=== PATIENT | male | born 1960 | race Caucasian/White ===

== ENCOUNTER 2022-04-30 09:30 | Outpatient (CLI) | payer BC, SELFPAY ==
--- NOTE | 2022-04-30 10:45 | NEURO_ITS ---
Impression: # History of bilateral hand numbness. # Evidence of mild bilateral Carpal Tunnel Syndrome (right worse than left). # Normal needle/EMG exam. # Clinical correlation recommended. Motor Nerve Conduction Upper Extremities Median Nerve Conduction Velocity (m/sec) Terminal Latency (msec) Response Voltage(mV) Elbow-Wrist Wrist Elbow Wrist Right 52 4.5 4 4 Left 53 3.9 6 6 Ulnar Nerve Conduction Velocity (m/sec) Terminal Latency (msec) Response Voltage(mV) Above Elbow Below Elbow Wrist Above Elbow Below Elbow Wrist Right 56 55 2.4 5 5 6 Left 55 54 2.2 5 6 7 F-Wave Latency Median (ms) Ulnar (ms) Right 32.8 31.3 Left 32.3 31.5 Sensory Nerve Conduction Upper Extremities Median Nerve Stimulation Terminal Latency (msec) Wrist/Digit Response Voltage (uV) Wrist Right 4.7/5.3 6/5 Left 4.6/4.7 17/9 Ulnar Nerve Stimulation Terminal Latency (msec) Wrist/Digit Response Voltage (uV) Wrist Right 2.6 11 Left 2.7 18 Radial Nerve Terminal Latency (msec) Response Voltage(mV) Right 2.0 27 Left 2.1 15 Left Right Muscles Examined Fibrillation Fasciculation Scarcity Voltage Duration Left Right Left Right Left Right Left Right Left Right Deltoid Biceps X X Brachioradialis Triceps X X Pronator Teres X X Ext Indicis X X Ext Digitorum X X Abd Poll Brev X X 1st Dorsal Interosseus Paraspinals MTDD
== END 2022-04-30 09:31 | disposition home or self-care (01) ==
LOC: ANHNEURO 09:32
PROVIDERS: PCP Family Medicine; Visit Provider Physician Assistant
DX: G56.03 Carpal tunnel syndrome, bilateral upper limbs (principal)
CPT/HCPCS: 95886; 95911

== ENCOUNTER 2022-05-12 08:14 | Outpatient (CLI) | payer BC, SELFPAY ==
--- NOTE | ~2022-05-12 | XR_ITS ---
EXAMINATION: HAND-MIRELA ARTHRITIS 3+VIEWS DATE: 05/12/2022 08:34 INDICATION: Bilateral hand pain, stiffness and numbness TECHNIQUE: Posteroanterior, lateral, and oblique views of the left and of the right hands as well as a ballcatchers view of both hands were obtained. COMPARISON: None. FINDINGS: Alignment is normal at both hands. No fractures. Relatively symmetric pattern of polyarticular osteoa rthritis with mild nonuniform joint space narrowing and tiny 2 moderate-sized marginal osteophytes in volving the bilateral first carpometacarpal, first-third metacarpophalangeal and multiple interphalan geal joints with distal predominance. No erosions to suggest inflammatory arthritis. Soft tissues are unremarkable. IMPRESSION: 1. Typical and relatively symmetric distribution of mild polyarticular osteoarthritis at the bilatera l hands. Reviewed, dictated and finalized at location D. ECTION PRINTER IMPRESSION: 1. Typical and relatively symmetric distribution of mild polyarticular osteoart hritis at the bilateral hands.
== END 2022-05-12 08:15 | disposition home or self-care (01) ==
PROVIDERS: PCP Family Medicine; Visit Provider Physician Assistant
DX: G56.00 Carpal tunnel syndrome, unspecified upper limb (principal); M19.042 Primary osteoarthritis, left hand; M19.041 Primary osteoarthritis, right hand
CPT/HCPCS: 73130

== ENCOUNTER 2022-05-13 00:41 | Day surgery (SDC) | payer BC, SELFPAY ==
[2022-04-27 13:53] VITALS: BMI 33.2
--- NOTE | 2022-05-12 13:35 | PM.HPGS ---
History of Present Illness History of Present Illness Consent: Risks, benefits, and alternatives have been discussed and questions answered. Patient agrees to proceed with procedure. Chief complaint: neoplasm screening Narrative: Nader Ndiaye is a 61 year old male referred for colon cancer screening. Review of Systems Review of Systems: All systems reviewed & are unremarkable except as noted in HPI and below PMFSH Past Medical History Medical History Blood glucose elevated Obesity Family History Family History Mother Diabetes mellitus Social History Social History Smoking packs per day: 0.5 Smoking cigarettes per day: 10.0 Years smoked: 20 Smoking pack-years: 10.00 Smoking status: Never smoker Tobacco type: cigarettes Second hand tobacco smoke exposure: No Smoking end date: 04/12/81 Alcohol intake: current Drinks per week: 0 Alcohol use details: rarely Substance use: never Substance use type: does not use Living arrangements: with family Occupation/Education: occupation Gender identity (if verbalized by the patient): Male Sexual Orientation (if Verbalized by the Patient): Straight or Heterosexual Spiritual care concerns: No Meds Home Medications and Allergies Home Medications Medication Instructions Recorded Confirmed Type atorvastatin 10 mg tablet 10 mg PO DAILY #90 tabs 12/16/21 04/24/22 Rx amlodipine 10 mg tablet 10 mg PO DAILY #90 tabs 04/24/22 04/24/22 Rx Allergies Allergy/AdvReac Type Severity Reaction Status Date / Time No Known Allergies Allergy Verified 04/24/22 08:44 Exam Const: General: alert Orientation/consciousness: patient oriented x3 Resp: Auscultation: clear to auscultation bilaterally Cardio: Rhythm: regular rhythm GI: GI Palp: Yes Soft to palpation and No Tenderness to palpation present (GI) Neuro: General: patient oriented x3 Assessment and Plan Assessment and plan (1) Colon cancer screening: Code(s): Z12.11 - Encounter for screening for malignant neoplasm of colon Status: Acute Assessment and Plan: Colonoscopy with possible biopsy or polypectomy or cautery or injection of substances.
[2022-05-13 06:15] VITALS: BP 126/78; PULSE 65; RESP 18; TEMP 36.4; O2SAT 100; BMI 33.7
[2022-05-13] MEDS: LACTATED RINGERS 1,000 ML 150 ML IV CONT (06:36)
--- NOTE | 2022-05-13 07:17 | P.PNAN_ITS ---
Anes - Initial Pre Proc Eval Procedure: Operation Date: 05/13/22 07:30 Proposed Procedures p Screening Colonoscopy - Tonny Shannon MD Date/Time: 05/13/22 07:17 Surgeon: Tonny Shannon MD Pre Op Diagnosis: neoplasm screening Patient Data Age: 61 Gender: M Height: 1.8 m Weight: 109.9 kg Last Vital Signs Temp 97.5 F L 05/13/22 06:15 Pulse 65 05/13/22 06:15 Resp 18 05/13/22 06:15 BP 126/78 05/13/22 06:15 Pulse Ox 100 05/13/22 06:15 O2 Del Method Room Air 05/13/22 06:15 Allergies Allergy/AdvReac Type Severity Reaction Status Date / Time No Known Allergies Allergy Verified 04/24/22 08:44 Home Medications Medication Instructions Recorded Confirmed Type atorvastatin 10 mg tablet 10 mg PO DAILY #90 tabs 12/16/21 04/24/22 Rx amlodipine 10 mg tablet 10 mg PO DAILY #90 tabs 04/24/22 04/24/22 Rx Patient hx anesthesia problems: none Family hx anesthesia problems: none Results Review: All pre-operative results and documents have been reviewed as part of the pre- operative evaluation. [facility] Past Medical History Medical History Blood glucose elevated Obesity Family History Family History Mother Diabetes mellitus Social History Social History Smoking packs per day: 0.5 Smoking cigarettes per day: 10.0 Years smoked: 20 Smoking pack-years: 10.00 Smoking status: Never smoker Tobacco type: cigarettes Second hand tobacco smoke exposure: No Smoking end date: 04/12/81 Alcohol intake: current Drinks per week: 0 Alcohol use details: rarely Substance use: never Substance use type: does not use Living arrangements: with family Occupation/Education: occupation Gender identity (if verbalized by the patient): Male Sexual Orientation (if Verbalized by the Patient): Straight or Heterosexual Spiritual care concerns: No Anes - Eval Final PreProcedure Day of Procedure 05/13/22 07:17 Patient weight: obese Heart: regular rate and rhythm Lungs: clear to auscultation Airway: Mallampati scale class II Neurological: alert and oriented Last oral intake: >/= 8 hours ASA classification: II Emergent: no Anesthetic plan: proceed Anesthesia type and monitoring: general GIVS and standard monitoring Results Review: All pre-operative results and documents have been reviewed as part of the pre- operative evaluation. Informed Consent: The patient's anesthetic plan and its attendant risks and benefits were discussed with the patient/family/POA. Questions were solicited and answers provided to the satisfaction of the patient/family/POA.
[2022-05-13 07:45] VITALS: BP 112/60; PULSE 60; RESP 18; O2SAT 96
[2022-05-13 07:55] VITALS: BP 113/60; PULSE 53; RESP 17; O2SAT 98
[2022-05-13 08:05] VITALS: BP 107/72; PULSE 56; RESP 17; O2SAT 98
== END 2022-05-13 08:14 | disposition home or self-care (01) ==
PROVIDERS: PCP Family Medicine; Visit Provider Internal Medicine Gastroenterology
PROC: 0DJD8ZZ Inspection of Lower Intestinal Tract, Via Natural or Artificial Opening Endoscopic (ICD-10-PCS; CPT 45378; principal; 2022-05-13 07:30)
DX: Z12.11 Encounter for screening for malignant neoplasm of colon (principal); K57.30 Diverticulosis of large intestine without perforation or abscess without bleeding; D12.4 Benign neoplasm of descending colon; K62.1 Rectal polyp; Z87.891 Personal history of nicotine dependence; E66.9 Obesity, unspecified; Z68.33 Body mass index [BMI] 33.0-33.9, adult
CPT/HCPCS: 45385; 88305; J2704; J7120

== ENCOUNTER 2024-02-28 13:45 | Outpatient (CLI) | payer BC, SELFPAY ==
--- NOTE | ~2024-02-28 | XR_ITS ---
EXAMINATION: XR_CERV2-3V_CR DATE: 02/28/2024 14:05 INDICATION: Paresthesia of skin. Tingling in the hands. TECHNIQUE: 4 views of cervical spine were obtained. COMPARISON: None. FINDINGS: Alignment is normal. Vertebral body heights are normal. There is mildly decreased disc heig ht at C5-C6 and moderately decreased disc height at C6-C7. There is multilevel mild facet joint osteo arthritis. No central canal stenosis or prevertebral soft tissue swelling. IMPRESSION: 1. Moderate cervical spondylosis. Reviewed, dictated and finalized at location A. ATOR OPERATOR
== END 2024-02-28 13:46 | disposition home or self-care (01) ==
PROVIDERS: PCP Family Medicine; Visit Provider Physician Assistant Medical
DX: R20.2 Paresthesia of skin (principal); M47.892 Other spondylosis, cervical region
CPT/HCPCS: 72040

== ENCOUNTER 2024-05-05 15:30 | Outpatient (RCR) | payer BC, SELFPAY ==
--- NOTE | 2024-04-04 09:59 | OPREHPOC ---
Outpatient Therapy Plan of Care This is a Multidisciplinary Plan of Care that may contain components documented by all disciplines (PT, OT, and ST.) PT Problem 1 PT Problem #1 Knowledge Deficit PT Goal 1 Goal / Goal Update *indep with HEP Target Visit 8 PT Problem 2 PT Problem #2 Pain PT Goal 1 Goal / Goal Update * pain rating at worst of 3/10 Target Visit 8 PT Goal 2 Goal / Goal Update * pt report with sleeping, awaken 3x/night due to pain Target Visit 8 PT Problem 3 PT Problem #3 Impaired Strength PT Goal 1 Goal / Goal Update *improve thoracic-scapular strength to improve position/posture pt perform prone scapular strengthening exercises with 3# hand weight x 15 reps Target Visit 8
--- NOTE | 2024-04-04 10:00 | PTOPEVAL1 ---
Assessment and note entered by Zaira Zepeda, PT Evaluation Information Assessment Status Evaluation ICD-10 Condition Codes (PT) Cervicalgia M54.2 Onset about 1 year Subjective Information chronic issues with tingling and numbness in arms- - never really addressed it, but now want to see about it and try to get it better; no recent injury or trauma to neck or arms; R hand dominant; x ray: per pt- degenerative discs in neck activity: work at [employer]- heavy and physical work; am able to do all of his work and home tasks with numbness and tingling in both arms; Reported Pain Level Pain Score Self Report Additional Pain Score Comments pain range in the past week: 0-6/10; intermittent radicular pain/numbness- tingling into both arms, L 3,4,5 fingers > R 3,4,5 fingers increase pain: hold one position too long; sitting driving decrease pain: reposition arm; hot shower is not taking any meds- tried aleve 2x/day for one week and it did not help with sleeping awaken from pain 8x/night and have to change positions also have tightness in fingers and feel swollen-- cleared and no carpal tunnel or arthritis Assessment PT Clinical Summary Nader has the diagnosis of cervical radiculopathy. He reports chronic issues with neck pain and numbness/tingling into arms, to fingers. Reduction of this with change of position. Neck Disability Index rating 18% limitation in activity level. He is able to perform all of his work and home tasks, sleeping is disrupted due to pain. With the evaluation: he does not have pain with active cervical motions or UE movements; tightness of muscles over R and L cervical, upper traps and pec. Skilled PT services are indicated for modalities to decrease pain and muscle tightness, therapeutic exercises to stretch cervical-thoracic area, to improve posture and position with education for HEP and posture. Plan of Care Interventions Electrical Stimulation,Hot Pack/Cold Pack,Manual Therapy,Mechanical Traction,Neuro Re-education, Patient/Caregiver Education,Therapeutic Activities ,Therapeutic Exercise,Ultrasound,Other Other Interventions taping PT Services Indicated Yes Treatment Frequency and 1-2x/wk for 8 visits Duration These treatments will address the objective and functional deficits as defined above. The patient will be advanced safely and appropriately in order for the patient to progress towards his/her prior level of function. Additional exercises will be introduced and as well as a comprehensive home exercise program upon discharge, if needed, ?to ensure carryover of functional gains achieved in the clinic. This treatment plan has been reviewed and agreement upon by the patient.
--- NOTE | 2024-05-05 16:17 | PTOPDC ---
Assessment and note entered by Zaira Zepeda, PT Assessment Status Discharge ICD-10 Condition Codes (PT) Cervicalgia M54.2 Onset about 1 year Subjective Information saw dr earlier this week and going to have MRI and have a new anti inflammatory med; MRI has not yet been scheduled; only taken the med 2 days and it seems to help the tingling and it does not start up until end of the morning; exercises help some for few minutes, but still hurt and tingle; agree to discharge from PT treatment. Reported Pain Level Pain Score Self Report Additional Pain Score Comments pain range in the past week: 0-5/10; L arm tingle into 3,4,5 fingers; frequency is less of the tingling, about 1x/hour, lasting varies from 2 minutes to 2 hours; no radicular into R UE; increase pain; posture and position of arm decrease pain: move arm, lie down, hot shower with sleeping, awaken 2x/night due to arm s/s; Assessment PT Clinical Summary Nader has received a total of 8 PT sessions. Compared to the initial evaluation: pain from 0-8 /10 to 0-5/10; continues to have radicular numbness and tingling into L UE to 3,4, 5 fingers, but reports it is less, with duration vary from 2 minutes to 2 hours; reports with sleeping awaken due to tingle from 8 to 2x/night; tingling is decreased with positional change; increase in strength over scapular-thoracic musculature; increased posture awareness; education completed for HEP, posture, pain control. The goals were partially met. Discharge PT. He is to continue with his HEP. Plan of Care PT Services Indicated No
== END 2024-05-08 10:36 | disposition home or self-care (01) ==
LOC: ANHPT 15:30
PROVIDERS: PCP Family Medicine; Visit Provider Physician Assistant Medical
DX: M47.812 Spondylosis without myelopathy or radiculopathy, cervical region (principal); R20.0 Anesthesia of skin
CPT/HCPCS: 97012; 97110; 97140; 97161; 97530

== ENCOUNTER 2024-05-27 12:16 | Outpatient (CLI) | payer BC, SELFPAY ==
--- NOTE | ~2024-05-27 | MR_ITS ---
EXAMINATION: MR cervical spine wo con DATE: 05/27/2024 13:14 INDICATION: Cervical radiculopathy TECHNIQUE: Magnetic resonance imaging (MRI) of the cervical spine was performed without intravenous c ontrast. Sequences included sagittal T2-weighted FSE, sagittal T2-weighted FS FSE, sagittal T1-weight ed FSE, axial MERGE and axial T2-weighted FSE. COMPARISON: Neck CT dated 08/15 cervical spine radiographs dated 02/28/2024 FINDINGS: Bone alignment is normal. Vertebral body heights are normal. Bone marrow signal intensity is normal . Moderate disc height loss at C6-C7 and mild disc height loss at all remaining cervical levels as we ll as at C7-T1. Cord signal intensity is normal. Visualized soft tissues are unremarkable. The follow ing disc levels are specifically discussed: C2-C3: The disc does not extend beyond the endplate margin. There is no uncovertebral joint osteoarth ritis. There is moderate right and mild left facet joint osteoarthritis. There is mild right neural f oraminal stenosis. There is no central canal stenosis. C3-C4: Disc is bulging with superimposed annular fissure and small central to left paracentral disc e xtrusion which extends up to 4 mm cephalad to the level of the inferior endplate of C3. This mildly i ndents the left ventral surface of the cord. There is mild right and moderate left uncovertebral join t osteoarthritis. There is mild right and moderate left facet joint osteoarthritis. There is moderate bilateral, left greater than, neural foraminal stenosis. There is mild central canal stenosis. C4-C5: Annular fissure with small central to right paracentral disc protrusion which mildly indents t he ventral surface of the cord. There is moderate bilateral uncovertebral joint osteoarthritis. There is mild right and moderate left facet joint osteoarthritis. There is mild right and moderate left ne ural foraminal stenosis. There is mild central canal stenosis. C5-C6: Annular fissure and moderate sized right paracentral disc protrusion which indents the right v entral surface of the cord. There is mild left and moderate right uncovertebral joint osteoarthritis. There is mild bilateral facet joint osteoarthritis. There is mild left and moderate right neural for aminal stenosis. There is mild central canal stenosis. C6-C7: Disc is bulging, eccentric to the left with flattening of the ventral surface of the cord Ther e is moderate bilateral uncovertebral joint osteoarthritis. There is moderate bilateral facet joint o steoarthritis. There is mild neural foraminal stenosis. There is mild central canal stenosis. C7-T1: The disc does not extend beyond the endplate margin. There is mild left and moderate right unc overtebral joint osteoarthritis. There is mild left and moderate right facet joint osteoarthritis. Th ere is mild left and moderate right neural foraminal stenosis. There is no central canal stenosis. IMPRESSION: 1. Moderate cervical spondylosis. Reviewed, dictated and finalized at location A. ATTENDANT
--- OUTSIDE RECORDS SUMMARY | 2024-05-27 12:21 | XMS_ITS | Clinical Summary ---
Author Organization [facility] Address [address] [place] [address] Care Team Providers Care Psychiatric Social Worker Name Role Phone Unavailable Primary Care Provider Unavailabl e Immunizations Immunization Administration Dates Next Due Covid-19, Mrna, Lnp-s, PF, 5 0 mcg/0.25 mL dose (Moderna) 02/28/2021 Social History Tobacco Use Types Packs/Day Years Used Date Smoking Tobacco: Never Assessed Sex and Gender Information Value Date Recorded Sex Assigned at Not on file Legal Sex Male 11:57 PM CDT Gender Identity Not on file Sexual Orientation Not on file Plan of Treatment Health Maintenance Due Date Last Done Comments Hepatitis C Virus (HCV) Screening 1960 TdaP Immunization 1960 Colonoscopy 2006 Colorectal Cancer Screening 2006 Cologuard 11/09/2011 Immunochemical Fecal Occult Blood 11/09/2011 Pneumococcal Immunization (5 0+ years) (1 of 1 - PCV) 11/09/2011 Zoster Immunization (1 of 2) 11/09/2011 PSA Discussion 2016 Influenza Immunization (#1) 2023 SARS-COV-2 Immunization ( season) 2023 02/28/2021, 06/15/2020, 05/18/2020 Respiratory Syncytial Virus (RSV) Immunization (Adult) (1 - 1-dose 75+ series) 2036 Hepatitis B Immunization Aged Out No longer eligible based on patient's age to complete this topic Meningococcal Immunization (ACWY) Aged Out No longer eligible b ased on patient's age to complete this topic Pneumococcal Immunization Combined Aged Out No longer eligible b ased on patient's age to complete this topic Rotavirus Immunization Aged Out No lo nger eligible based on patient's age to complete this topic
--- OUTSIDE RECORDS SUMMARY | 2024-05-27 12:21 | XMS_ITS | Data Portability ---
Author [facility] Address [address] [place] [address] Assessment No assessment recorded. Plan of Treatment Reminders Order Date Submit Date Provider Last Modified By Organization Details Last Modified Time Details Appointments None recorded. Lab None recorded. Referral finish mixer referral - Please call patient to schedule and send consult note. 2016 017 MICHAEL Not available 7 14:49:04 sleep study referral - Please call patient to schedule 2016 [facility], [address] [place] [address], [address], 7 15:06:11 general surgeon referral 2016 017 [email or web address] Not available 7 07:58:58 general surgeon referral 2016 017 [email or web address] Not available 7 07:58:08 Procedures None recorded. Surgeries None recorded. Imaging None recorded. Medication Orders amlodipine 5 mg tablet 2016 017 INTERFACE [facility] [place], [address], 7 12:06:24 Patient TargetsNo targets recorded. Patient InstructionsNo instructions recorded. Reason for Referral General Surgeon Referral for Skin tag Referring Physician: Aracely Tobin, Internal Medicine, Encounter Date: 04/15/2016 Loading Rack Supervisor Referral for Dyst rophia unguium Dystrophic nail Please call patient to schedule and send consult note. Referring Physician: Aracely Tobin, Internal Medicine, Encounter Date: 04/15/2016 General Surgeon Referral for Skin tag Referring Physician: Aracely Tobin, Internal Medicine, Encounter Date: 04/15/2016 Please call patient to ciaran reed Referring Physician: Aracely Tobin, Internal Medicine, Encounter Date: 04/15/2016 Problems Name Problem SNOMED Code Status Onset Date Resolution Date Notes Provider Name and Address Organization Details Recorded Time Sleep disorder 12385409 Active 2016 Aracely Tobin MD Attn: Bertha birmingham,[address] [place], [address], [facility] 7 16:02:48 Skin tag 076775358 Active 2016 Aracely Tobin MD Attn: Bertha birmingham,[address] [place], [address], 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 Procedures Surgical History Date Name Laterality Status Provider Name and Address Organization Details Recorded Time Hernia Repair completed Zeinab Pugh MA [facility] 04/15/2016 15:09:02 Vasectomy completed Zeinab Pugh MA [facility] 04/15/2016 15:09:07 Imaging Results None recorded. Procedure Notes None recorded. Medical Equipment None Reported. Allergies No known drug allergies Medications Name Sig Start Date Stop Date Status Note LastModified by Organization Details LastModified Time amlodipine 5 mg tablet Take 1 tablet every day by oral route. 017 active Not Available Not Available Not Avai lable Vitals Date Recorded Body height Body weight Body mass index (BMI) Body temperature Heart rate Oxygen saturation Oxygen saturation in Arterial blood by Pulse oximetry Systolic blood pressure Diastolic blood pressure Provider Name and Address Organization Details Last Updated DateTime 180.34 cm 452566. 54 g 34 kg/m2 97.9 [degF] 87 /min 95 % 95 % 134 mm[Hg] 100 mm[Hg] Zeinab Pugh MA [facility] 7 15:11:15 Date Recorded Systolic blood pressure Diastolic blood pressure Provider Name and Address Organization Details Last Updated DateTime 04/15/2016 140 mm[Hg] 100 mm[Hg] Aracely Tobin MD Attn: Accounting,[address] [place], [address], [facility] 04/15/2016 15:52:51 Date Recorded Body height Body weight Body mass index (BMI) Heart rate Oxygen saturation Oxygen saturation in Arterial blood by Pulse oximetry Respiratory rate Systolic blood pressure Diastolic blood pressure Provider Name and Address Organization Details Last Updated DateTime 7 180.34 cm 334966. 42 g 33.2 kg/m2 72 /min 96 % 96 % 20 /min 138 mm[Hg] 82 mm[Hg] Rodger Beltrán [facility] 11:20:51 Social History None recorded. Functional Status None recorded. Mental Status None recorded. Family History Relationship Description Onset Age of this Age Resolved Age Notes LastModified by Organization Details LastModified Time Mother Diabetes mellitus [email or web address] Not available 2016 15:08:43 Medical History Condition Response High Cholesterol Y Past Encounters Encounter ID Performer Location Encounter Start Date Encounter Closed Date Diagnosis/Indication Diagnosis SNOMED-CT Code Diagnosis ICD10 Code Diagnosis Note [id number] MD Martha Carter (Adult Med) [address] [place] [address] 04/15/2016 14:36:18 04/15/2016 16:28:20 Pigmented skin lesion 592046511 L81.9 Observe at present Skin tag 568488449 L91.8 Elevated blood-pressure reading without diagnosis of hypertension 343977764 R03.0 Dystrophia unguium 35183 009 L60.3 Referral Sleep disorder 05547364 G47.9 [id number] MD Martha Carter (Adult Med) [address] [place] [address] 07/07/2016 10:36:19 07/07/2016 12:08:41 Essential hypertension 18149226 I10 Labs on return in 10/2016 Health Concerns Section Related Observation LastModified by Organization Detai ls LastModified Time None Recorded Concern Status LastModified by Organization Details LastModified Time None Recorded Advance Directives Directive None Recorded Payers Encounter Date Sequence Insurance Name Policy Number Policy Bar Covered Member ID Bar Member ID Guarantor Name 04/15/2016 [facility]MED[facility]ID H[facility]) Nader Ndiaye [id number] Nader Ndiaye 07/07/2016 [facility]MEDICAID HMO) Nader Ndiaye [id number] Nader Ndiaye Notes Date Note Type Note Provider Name and Address Organization Details Recorded Time 04/15/2016 text/html Has been told that he stops breathing while asleep. Has a skin tag on his right thigh. He is also concerned about a fungal infection on the left great toe. Aracely Tobin MD Attn: Accounting,[address] [facility], [place], [address], [facility] 04/15/2016 16:30:15 07/07/2016 text/html No new complaints. Aracely Tobin MD Attn: Accounting,[address] [facility], [place], [address], [facility] 07/07/2016 12:07:24
== END 2024-05-27 12:17 | disposition home or self-care (01) ==
PROVIDERS: PCP Family Medicine; Visit Provider Family Medicine
DX: M47.22 Other spondylosis with radiculopathy, cervical region (principal)
CPT/HCPCS: 72141

== ENCOUNTER 2024-08-02 07:54 | Outpatient (CLI) | payer BC, SELFPAY ==
--- NOTE | ~2024-08-02 | XR_ITS ---
XR chest 2V Ordering provider: Mariza Barlow PA-C History: 63 years Male with . J98.11 - Atelectasis . Comparison: August 13, 2005 FINDINGS: MEDIASTINUM: The cardiac silhouette is slightly enlarged. LUNGS: No effusions or pneumothorax. Atelectatic changes in the left lung base. OTHER: No free air under the diaphragm. Degenerative changes of the spine. IMPRESSION: Minimal left basal atelectatic changes. Follow-up advised Reviewed, dictated and finalized at location A.
== END 2024-08-02 07:55 | disposition home or self-care (01) ==
PROVIDERS: PCP Family Medicine; Visit Provider Physician Assistant
DX: J98.11 Atelectasis (principal); J90 Pleural effusion, not elsewhere classified
CPT/HCPCS: 71046

== ENCOUNTER 2025-01-11 11:06 | Outpatient (CLI) | payer BC, SELFPAY ==
--- NOTE | 2025-01-11 11:18 | ECG_ITS ---
Test Date: 2025-01-11 11:22:14 Measurements Intervals [place] Rate: 92 P: 59 MN: 148 QRS: 10 QRSD: 94 T: 10 QT: 327 QTc: 405 Interpretive Statements SINUS RHYTHM LOW QRS VOLTAGE IN PRECORDIAL LEADS NONSPECIFIC T-WAVE ABNORMALITY- INFERIOR LEADS BASELINE WANDER- V2-V4 BORDERLINE ECG No previous ECG available for comparison Electronically Signed On 01-11-2025 11:44:53 CDT by Jorge Alberto Miller D.O.
--- OUTSIDE RECORDS SUMMARY | 2025-01-11 11:40 | XMS_ITS | Clinical Summary ---
Author Organization [facility] Address [address] [place] [address] Care Team Providers Care Research Assistant Name Role Phone Unavailable Primary Care Provider [...] Virus (HCV) Screening 1961 TdaP Immunization 1961 Cologuard 2006 Colonoscopy 2006 Colorectal Cancer Screening 2006 Immunochemical Fecal Occult Blood 2006 Pneumococcal Immunization (5 0+ years) (1 of 1 - PCV) 11/09/2011 Zoster Immunization (1 of 2) 11/09/2011 Influenza Immunization (#1) 2024 SARS-COV-2 Immunization ( season) 2024 02/28/2021, 06/15/2020, 05/18/2020 Respiratory Syncytial Virus (RSV) Immunization (Adult) (1 - 1-dose 75+ series) 2036 Hepatitis B Immunization Aged Out No longer eligible based on patient's age to complete this topic Human Papillomavirus (HPV) Immunization Aged Out No longer eligible b ased on patient's age to complete this topic Meningococcal Immunization (ACWY) Aged Out No longer eligible b ased on patient's age to complete this topic Rotavirus Immunization Aged Out No lo nger eligible based on patient's age to complete this topic
== END 2025-01-11 11:07 | disposition home or self-care (01) ==
LOC: ANHSURGERY 11:13
PROVIDERS: PCP Family Medicine; Visit Provider Plastic Surgery
DX: R94.31 Abnormal electrocardiogram [ECG] [EKG] (principal); I10 Essential (primary) hypertension
CPT/HCPCS: 93005

== ENCOUNTER 2025-01-17 02:47 | Day surgery (SDC) | payer BC, SELFPAY ==
--- NOTE | 2025-01-10 15:18 | PC.NURSE ---
Addendum entered by Landen Lilly RN 01/10/25 15:41: PT TO STOP ALL VITAMINS AND SUPPLEMENTS 3 DAYS PRIOR TO PROCEDURE. LAST DOSE ON 01/13/25 Original Note: [facility] has started construction of its new state of the art ER which will open Spring 2026. With this, we anticipate parking may be a challenge for some our surgical patients and families. Parking spaces are limited but are available for all Surgical, obstetrics, and ER patients sharing this lot. If you arrive and find you are having a hard time finding a parking space, please note that we understand the challenges, please drive around the hospital and park near Hospital Entrance 1. When you enter this entrance, you can ask a volunteer to direct or take you back to the surgical waiting area to check in. We appreciate everyone?s understanding of these expected challenges while we build for your future. Report to the Outpatient Waiting Room, entrance under the green pavilion located off [facility], at time 1145 on date 01/17/25. Planned Procedure Time: 1345.? Time changes happen often and if your time is changed the preop area will call you the afternoon before. - You and your visitor will be asked to self-screen and do not enter if you have any COVID symptoms. Please call surgeon if you need to reschedule. - A mask is optional within the hospital at this time. Patients may have clear liquids (water, carbonated beverages, clear teas, apple juice) until 3 hours prior to surgery with a maximum of 20 ounces. - No food from midnight until time of surgery and no smoking, or chewing tobacco (or any form of nicotine). No chewing gum, candy or mints. - Infants may have breast milk until 4 hours before surgery, infant formula 6 hours prior to surgery. - Children will be allowed to drink immediately following surgery.? If applicable, please bring a bottle or sippy cup to assist with drinking. Juice, water, soda, and popsicles are readily available.? For infants on formula, please bring formula the day of surgery.? Pacifiers are allowed. Take only the following medications with a SIP of water on the morning of surgery: AMLODIPINE DO NOT STOP ANY OF YOUR OTHER PRESCRIPTION MEDICATIONS PRIOR TO SURGERY EXCEPT THE FOLLOWING Hold all vitamins and supplements for 3 days per anesthesiologist. Medications to discontinue per physician N/A Date to take last dose N/A Please no make-up, nail uzbek, hairspray, perfume, deodorant, or body powder the day of surgery.? No jewelry (including any body piercings) or valuables the day of surgery, leave them at home.? Please take a shower or bath the night before, or the morning of, surgery with an antibacterial soap.? Wear comfortable, loose fitting clothing.? Children are encouraged to wear pajamas. - Jewelry must be removed prior to entering the operating room.? Rings and piercings that are not removed may be cut off. - The hospital will not accept responsibility for valuables.? - Please leave all valuables, including medications, at home the day of surgery. If you are going home after surgery, a licensed public transit bus driver must drive you home.? - NO public transportation without another adult if you receive anesthesia. - We recommend that an adult stay with you for 24 hours following discharge. - We also recommend that you do not drive, make important decision, drink alcoholic beverages, or take any drugs that were not prescribed by your health care provider for at least 24 hours after your discharge time. For Pediatric surgeries, we recommend two adults accompany the child home. Follow any additional instructions given to you from your surgeon. Telephone instructions given to JOAN BENJAMIN and asked if any additional questions and then verbalized understanding. Patient advised to call surgeon office or pre surgery nurse liaison [phone] if any additional questions.
[2025-01-10 15:34] VITALS: BMI 36.2
[2025-01-16 12:07] VITALS: BP 145/84; PULSE 81; RESP 16; TEMP 37.1; O2SAT 98
--- OUTSIDE RECORDS SUMMARY | 2025-01-17 02:49 | XMS_ITS | Data Portability ---
[facility] Address [address] [place] [address] Assessment No assessment recorded. Plan of Treatment Reminders Order Date Submit Date Provider Last Modified By Organization Details Last Modified Time Details Appointments None recorded. Lab None recorded. Referral cloth colorer referral - Please call patient to schedule and send consult note. 2016 017 MICHAEL Not available 7 14:49:04 sleep study referral - Please call patient to schedule 2016 017 [facility], [address] [place], [address], 7 15:06:11 general surgeon referral 2016 017 [email or web address] Not available 7 07:58:58 general surgeon referral 2016 017 [email or web address] Not available 7 07:58:08 Procedures None recorded. Surgeries None recorded. Imaging None recorded. Medication Orders amlodipine 5 mg tablet 2016 017 INTERFACE [facility] [address] [place], [address], 7 12:06:24 Patient TargetsNo targets recorded. Patient InstructionsNo instructions recorded. Reason for Referral General Surgeon Referral for Skin tag Referring Physician: Aracely Tobin, Internal Medicine, Encounter Date: 04/15/2016 Territory Sales Representative Referral for Dyst rophia unguium Dystrophic nail [...] Address Organization Details Recorded Time Sleep disorder 92913073 Active 2016 Aracely Tobin MD Attn: Bertha birmingham,[address] [facility], [place], [address], [place] [facility] 7 16:02:48 Skin tag 688436522 Active 2016 Aracely Tobin MD Attn: Bertha birmingham,[address] [facility], [place], [address], [place] [facility] 7 16:03:35 Dystrophia unguium 87786555 Active 2016 Aracely Tobin MD Attn: Bertha birmingham,[address] [facility], [place], [address], [place] [facility] 7 16:05:01 Pigmented skin lesion 410093310 Active 2016 Aracely Tobin MD Attn: Bertha birmingham,[address] [facility], [place], [address], [place] [facility] 7 16:05:42 Elevated blood-pressure reading without diagnosis of hypertension 870866143 Active 2016 Aracely Tobin MD Attn: Bertha birmingham,[address] [facility], [place], [address], [place] [facility] 7 16:07:53 Essential hypertension 60185853 Active 2016 Aracely Tobin MD Attn: Bertha birmingham,[address] [facility], [place], [address], [place] [facility] 7 19:46:59 Problem Notes None recorded. Procedures Surgical History Date Name Laterality Status Provider Name and Address Organization Details Recorded Time Hernia Repair completed Zeinab Pugh MA [facility] 04/15/2016 15:09:02 Vasectomy completed Zeinab Pugh MA [facility] 04/15/2016 15:09:07 Imaging Results None recorded. Procedure Notes None recorded. Medical Equipment None Reported. Allergies No known drug allergies Medications Name Sig Start Date Stop Date Status Note LastModified by Organization Details LastModified Time amlodipine 5 mg tablet Take 1 tablet every day by oral route. 017 active Not Available Not Available Not Avai lable Vitals Date Recorded Systolic And Diastolic Provider Name and Address Organization Details Last Updated DateTime 04/15/2016 140/100 mm[Hg] Aracely Tobin MD Attn: Accounting,[address] [facility], [place], [address], [facility] 04/15/2016 15:52:51 Date Recorded Body height Body weight Body mass index (BMI) Body temperature Heart rate Oxygen saturation Oxygen saturation in Arterial blood by Pulse oximetry Systolic And Diastolic Provider Name and Address Organization Details Last Updated DateTime 7 180.34 cm 363525. 54 g 34 kg/m2 97.9 [degF] 87 /min 95 % 95 % 134/100 mm[Hg] Zeinab Pugh MA [facility] 7 15:11:15 Date Recorded Body height Body weight Body mass index (BMI) Heart rate Oxygen saturation Oxygen saturation in Arterial blood by Pulse oximetry Respiratory rate Systolic And Diastolic Provider Name and Address Organization Details Last Updated DateTime 7 180.34 cm 405413. 42 g 33.2 kg/m2 72 /min 96 % 96 % 20 /min 138/82 mm[Hg] Rodger Beltrán [facility] 11:20:51 Social History None recorded. Functional Status [...] Diagnosis SNOMED-CT Code Diagnosis ICD10 Code Diagnosis IMO Codes Diagnosis Note [id number] MD Martha Carter (Adult Med) [address] [place] [address] 04/15/2016 14:36:18 04/15/2016 16:28:20 Pigmented skin lesion 632423519 L81.9 Observe at present Skin tag 718522336 L91.8 Elevated blood-pressure reading without diagnosis of hypertension 726383082 R03.0 Dystrophia unguium 28344 009 L60.3 Referral Sleep disorder 93264489 G47.9 [id number] Aracely Tobin MD [facility] (Adult Med) [address] [place] [address] 07/07/2016 10:36:19 07/07/2016 12:08:41 Essential hypertension 32728861 I10 Labs on return in 10/2016 Health Concerns Section Related Observation LastModified by Organization Detai ls LastModified Time None Recorded Concern Status LastModified by Organization Details LastModified Time None Recorded Advance Directives Directive None Recorded Payers Insurance Date Sequence Insurance Name Policy Number Policy Bar Covered Member ID Bar Member ID Guarantor Name 02/25/2017 2 [facility] (MEDICAID HMO) Nader Ndiaye [id number] Nader Ndiaye 02/25/2017 1 [facility] [id number] Nader Ndiaye [id number] Nader Ndiaye Notes Date Note Type Note Provider Name and Address Organization Details Recorded Time 04/15/2016 text/html Has been told that he stops breathing while asleep. Has a skin tag on his right thigh. He is also concerned about a fungal infection on the left great toe. Aracely Tobin MD Attn: Accounting,[address] [facility], [place], [address], [facility] 04/15/2016 16:30:15 07/07/2016 text/html No new complaints. Aracely Tobin MD Attn: Accounting,[address] [facility], [place], [address], [facility] 07/07/2016 12:07:24
--- OUTSIDE RECORDS SUMMARY | 2025-01-17 02:50 | XMS_ITS | Clinical Summary ---
Author Organization [facility] Address [address] [place] [address] Care Team Providers Care Medical Biller/Coder Name Role Phone Unavailable Primary Care Provider [...]
--- NOTE | 2025-01-17 07:14 | PM.HPGS ---
History of Present Illness History of Present Illness Chief complaint: left carpal tunnel syndrome Narrative: Patient seen and examined in pre-operative holding area. No interval change in medical history or symptoms. Patient recalls previous discussion of benefits and alternatives to procedure. Continues to desire to proceed with left endoscopic possible open carpal tunnel release . Reviewed procedure, post-op expectations and risks including but not limited to bleeding, infection, injury to tendon/nerve/vessel, decreased hand function, stiffness, RSD, no change or worsening of symptoms. I discussed the possible use of assistants and their participation in the case. Patient stated understanding and signed the consent form wishing to proceed. Review of Systems Review of Systems: All systems reviewed & are unremarkable except as noted in HPI and below PMFSH Past Medical History Medical History (Updated 01/17/25 @ 07:15 by Jose Lopez MD) Type 2 diabetes mellitus without complications Essential hypertension Hepatic steatosis Mixed hyperlipidemia JESSICA (obstructive sleep apnea) Obesity Blood glucose elevated Family History Family History Mother Diabetes mellitus Social History Social History Social History: Smoking packs per day: 0.5 Smoking cigarettes per day: 10.0 Years smoked: 20 Smoking pack-years: 10.00 Smoking status: Never smoker Tobacco type: cigarettes Second hand tobacco smoke exposure: No Smoking end date: 04/12/81 Alcohol intake: current Alcohol use details: rarely Substance use: never Substance use type: does not use Do You Feel Safe in your Home?: Yes Lack of Transportation: No Lack of Food: Never True Current Housing: I Have Housing Concerned About Future Housing: No Difficulty Paying Gas/Electric Bills: No Difficulty Paying for Meds: No Currently Unemployed: YES Education: Don't Know Difficulty w/ Childcare or Family Care: No Living arrangements: with family Occupation/Education: unemployed Gender identity (if verbalized by the patient): Male Sexual Orientation (if Verbalized by the Patient): Straight or Heterosexual Spiritual care concerns: No Meds Home Medications and Allergies Home Medications ?Medication ?Instructions ?Recorded ?Confirmed ?Type amlodipine 10 mg tablet 10 mg PO DAILY #90 tabs 03/21/24 01/10/25 Rx atorvastatin 10 mg tablet 10 mg PO DAILY #90 tabs 03/21/24 01/10/25 Rx hydrochlorothiazide 25 mg tablet 25 mg PO DAILY #90 tabs 08/30/24 01/10/25 Rx losartan 100 mg tablet 100 mg PO DAILY #90 tabs 08/30/24 01/10/25 Rx multivitamin 1 tablet PO DAILY 01/10/25 01/10/25 History omega 9-sry-jmo-fish oil 100 1 cap PO DAILY 01/10/25 01/10/25 History mg-160 mg-1,000 mg capsule (Fish Oil) turmeric 400 mg capsule 400 mg PO DAILY 01/10/25 01/10/25 History Allergies Allergy/AdvReac Type Severity Reaction Status Date / Time No Known Allergies Allergy Verified 01/10/25 15:30 Exam Narrative: unchanged Assessment and Plan Assessment and plan (1) Left carpal tunnel syndrome: Code(s): G56.02 - Carpal tunnel syndrome, left upper limb Status: Acute Assessment and Plan: cont as above
--- NOTE | 2025-01-17 08:33 | W.PM.PROC2 ---
Procedure Note - Detailed Date of Procedure 01/17/25 Pre-op Diagnosis left carpal tunnel syndrome Post-op Diagnosis Same Procedure Performed left ectr Surgeon Jose Lopez MD Document Review Specialist lola bright pa-c Anesthesia MAC Description of Procedure INFORMED CONSENT: The patient was seen and examined and marked in the pre-op area.? The patient signed the consent form. PROCEDURE IN DETAIL:The patient taken back to OR on the stretcher in supine position. Time out performed with anesthesia, surgeon and staff agreeing on patient's name site and surgery to be performed SCDs were placed on the lower extremities and inflated. A tourniquet was placed on {left} upper extremity and antibiotics given IV After anesthesia administered sedation I injected {}cc 1%lido with epi and 0.5% marcaine plain at the operative site The?{left upper extremity}?was prepped and draped in sterile fashion the??{left upper extremity} was? exsanguinated with Esmarch bandage and tourniquet inflated to 250mmHg I made a transverse incision in the {left} volar distal wrist crease through skin and dermis with 15 blade scalpel.? Littler scissors spread down to antebrachial fascia. A small incision was made in antebrachial fascia allowing access to Carpal tunnel. I proceeded with sequential dilation staying in line with the ring finger and hugging the hook of the hamate.? I then used the synovial elevator to free any adhesions from the underside of the transverse carpal ligament. Next I was able to insert the Microaire endoscopic carpal tunnel device with direct visualization of the transverse fibers on the monitor and proceeded with complete segmental retrograde release of the ligament in its entirety.? I irrigated with normal saline and closed with 4-0 monocryl for dermis and subcuticular closure. A dressing of Dermabond, 4x4, daniella, and a volar splint was applied for patient safety, security, and comfort and secured with an stevo bandage after the tourniquet was let down noting the hand was warm and well perfused. The patient was then awaken from anesthesia and transferred to the recovery room in stable condition.? Complications - none EBL- 0cc Disposition - home in stable condition lola bright pa-c was essential for positioning, retraction, closure and dressing placement [facility] Billing Surgery - Charge Forward: Surgery Billing ([id number] same for lola adding )
[2025-01-17 12:07] VITALS: BMI 35.8
--- NOTE | 2025-01-17 13:46 | WPDANESEPPF ---
Anes - Initial Pre Proc Eval Procedure: Operation Date: 01/17/25 14:15 Proposed Procedures p Left Endoscopic Carpal Tunnel Release, Possible Open - Jose Lopez MD Date/Time: 01/17/25 13:46 Surgeon: Jose Lopez MD Pre Op Diagnosis: left carpal tunnel syndrome Patient Data Age: 64 Gender: M Height: 1.8 m Weight: 116.6 kg Last Vital Signs Temp 37.1 C 01/16/25 12:07 Pulse 81 01/16/25 12:07 Resp 16 01/16/25 12:07 BP 145/84 H 01/16/25 12:07 Pulse Ox 98 01/16/25 12:07 O2 Del Method Room Air 01/16/25 12:07 Allergies Allergy/AdvReac Type Severity Reaction Status Date / Time No Known Allergies Allergy Verified 01/10/25 15:30 Home Medications ?Medication ?Instructions ?Recorded ?Confirmed ?Type amlodipine 10 mg tablet 10 mg PO DAILY #90 tabs 03/21/24 01/10/25 Rx atorvastatin 10 mg tablet 10 mg PO DAILY #90 tabs 03/21/24 01/10/25 Rx hydrochlorothiazide 25 mg tablet 25 mg PO DAILY #90 tabs 08/30/24 01/10/25 Rx losartan 100 mg tablet 100 mg PO DAILY #90 tabs 08/30/24 01/10/25 Rx multivitamin 1 tablet PO DAILY 01/10/25 01/10/25 History omega 3-iin-gbi-fish oil 100 1 cap PO DAILY 01/10/25 01/10/25 History mg-160 mg-1,000 mg capsule (Fish Oil) turmeric 400 mg capsule 400 mg PO DAILY 01/10/25 01/10/25 History tramadol 50 mg tablet 50 mg PO Q6H PRN pain #12 tabs 01/17/25 Rx Patient hx anesthesia problems: none Family hx anesthesia problems: none Results Review: All pre-operative results and documents have been reviewed as part of the pre-operative evaluation. [facility] Past Medical History Medical History Type 2 diabetes mellitus without complications Essential hypertension Hepatic steatosis Mixed hyperlipidemia JESSICA (obstructive sleep apnea) Obesity Blood glucose elevated Family History Family History Mother Diabetes mellitus Social History Social History Social History: Smoking packs per day: 0.5 Smoking cigarettes per day: 10.0 Years smoked: 20 Smoking pack-years: 10.00 Smoking status: Never smoker Tobacco type: cigarettes Second hand tobacco smoke exposure: No Smoking end date: 04/12/81 Alcohol intake: current Alcohol use details: rarely Substance use: never Substance use type: does not use Do You Feel Safe in your Home?: Yes Lack of Transportation: No Lack of Food: Never True Current Housing: I Have Housing Concerned About Future Housing: No Difficulty Paying Gas/Electric Bills: No Difficulty Paying for Meds: No Currently Unemployed: YES Education: Don't Know Difficulty w/ Childcare or Family Care: No Living arrangements: with family Occupation/Education: unemployed Gender identity (if verbalized by the patient): Male Sexual Orientation (if Verbalized by the Patient): Straight or Heterosexual Spiritual care concerns: No Anes - Eval Final PreProcedure Day of Procedure 01/17/25 13:46 Patient weight: obese Heart: regular rate and rhythm Lungs: decreased breath sounds Airway: Mallampati scale class II Neurological: alert and oriented Last oral intake: >/= 8 hours ASA classification: III Emergent: no Anesthetic plan: proceed Anesthesia type and monitoring: general GIVS and standard monitoring Results Review: All pre-operative results and documents have been reviewed as part of the pre-operative evaluation. Informed Consent: The patient's anesthetic plan and its attendant risks and benefits were discussed with the patient/family/POA. Questions were solicited and answers provided to the satisfaction of the patient/family/POA.
[2025-01-17] MEDS: ceFAZolin 2 GM in SODIUM CHLORIDE 0.9% IV 50 ML 100 ML IVPB (14:00)
[2025-01-17] MEDS: BUPivacaine HCL 0.5% 10 ML AMP INFILTRATE (14:09)
[2025-01-17] MEDS: LIDO 1%/EPINEPHRINE 1:100,000 50 ML VIAL 10 ML INFILTRATE (14:10)
[2025-01-17 14:23] VITALS: BP 111/66; PULSE 67; RESP 14; O2SAT 94
[2025-01-17] MEDS: LACTATED RINGERS 1,000 ML 30 ML IV CONT (14:23)
[2025-01-17 14:50] VITALS: BP 122/64; PULSE 64; RESP 14
== END 2025-01-17 15:09 | disposition home or self-care (01) ==
PROVIDERS: PCP Family Medicine; Visit Provider Plastic Surgery
PROC: 01N54ZZ Release Median Nerve, Percutaneous Endoscopic Approach (ICD-10-PCS; CPT 29848; principal; 2025-01-17 14:15)
DX: G56.02 Carpal tunnel syndrome, left upper limb (principal); E11.9 Type 2 diabetes mellitus without complications; I10 Essential (primary) hypertension; E78.2 Mixed hyperlipidemia; G47.33 Obstructive sleep apnea (adult) (pediatric); E66.9 Obesity, unspecified; Z68.35 Body mass index [BMI] 35.0-35.9, adult; Z79.891 Long term (current) use of opiate analgesic; Z87.19 Personal history of other diseases of the digestive system
CPT/HCPCS: 29848; J0690; J2003; J2004; J2250; J2704; J3010; J7120

== ENCOUNTER 2025-04-07 15:30 | Emergency (ER) | payer BC, SELFPAY ==
[2025-04-07] VITALS (9 sets, daily range): BP systolic 131–154; BP diastolic 66–81; PULSE 70–85; RESP 15–22; TEMP 36.4; O2SAT 94–98
--- NOTE | ~2025-04-07 | XR_ITS ---
EXAMINATION: XR chest 2V DATE: 04/07/2025 18:58 INDICATION: Weakness. Nausea. TECHNIQUE: Frontal and lateral views of the chest were obtained. COMPARISON: Chest x-ray 08/02/2024 FINDINGS: Borderline size heart. Atherosclerotic aorta. Lungs are free of acute process. IMPRESSION: 1. No acute findings. Atherosclerotic aorta. Reviewed, dictated and finalized at location T. LOAD DRIVER
--- NOTE | ~2025-04-07 | CT_ITS ---
EXAMINATION: CT brain wo con DATE: 04/07/2025 19:36 INDICATION: Dizziness, altered mental status. TECHNIQUE: Computed tomography (CT) of the head was performed without intravenous contrast. The mA was adjusted according to patient size. Iterative reconstruction technique was employed. The dose-length product was 605.33 mGy-cm. COMPARISON: None FINDINGS: No acute intracranial bleed. No ventriculomegaly or effacement of sulci. No midline shift. Paranasal sinuses show chronic inflammatory changes of right maxillary sinus. Mastoids are clear. IMPRESSION: 1. No acute intracranial findings in the noncontrast CT head. Chronic appearing inflammatory changes of right maxillary sinus. Reviewed, dictated and finalized at location T. ENGER BOOKING CLERK
--- NOTE | 2025-04-07 18:10 | ECG_ITS ---
Test Date: 2025-04-07 18:18:31 Measurements Intervals Homer Rate: 72 P: 38 WV: 149 QRS: -7 QRSD: 90 T: 20 QT: 377 QTc: 414 Interpretive Statements SINUS RHYTHM BASELINE ARTIFACT- I, II, III, AVR, AVL ,AVF NORMAL ECG Compared to ECG 01/11/2025 11:22:14 No significant changes Electronically Signed On 04-07-2025 21:44:02 DOUBLE HEAD MACHINE OPERATOR by Jorge Alberto Miller D.O.
[2025-04-07 18:33] LABS: Hematocrit 43.2 % (42.0-52.0); Hemoglobin 14.5 g/dL (14.0-18.0); Immature Granulocyte Percent A 0.6 % (0-0.5); Lymphocytes Absolute Auto 2.01 K/mm3 (0.9-3.2); Mean Corpuscular HGB Conc 33.6 g/dl (32-36); Mean Corpuscular Hemoglobin 30.7 pg (26-34); Mean Corpuscular Volume 91.3 fl (80-100); Nucleated Red Blood Cells Absolute Auto 0.000 K/mm3 (0.0-0.012); Nucleated Red Blood Cells Perc 0.0 % (0.0-0.2); Platelet Count Result 280 k/mm3 (150-375); Red Blood Count 4.73 M/mm3 (4.6-6.20); White Blood Count 9.3 K/mm3 (4.5-10.0)
[2025-04-07 18:44] LABS: Alanine Aminotransferase 74 U/L (6-50); Albumin Level 4.6 g/dL (3.5-5.1); Alkaline Phosphatase 80 U/L (38-126); Anion Gap 9 mmol/L (4-12); Aspartate Amino Transferase 61 U/L (17-59); Bilirubin,Total 0.4 mg/dL (0.2-1.3); Blood Urea Nitrogen 15 mg/dL (9-20); Calcium 9.7 mg/dL (8.4-10.2); Carbon Dioxide 24 mmol/L (22-30); Chloride 103 mmol/L (98-107); Estimated CRCL calculation 118 ml/min; Estimated Glomerular Filt Rate > 60; Glucose 114 mg/dL (65-110); Lipase 63 U/L (23-300); Potassium 4.1 mmol/L (3.4-5.0); Sodium 136 mmol/L (137-145); Total Protein 8.2 g/dL (6.3-8.2)
[2025-04-07 18:47] LABS: INR 1.1; Prothrombin Time 13.9 Seconds (11.1-14.7)
[2025-04-07 18:55] LABS: Troponin I < 0.012 ng/mL (0.000-0.034)
[2025-04-07 19:08] LABS: Influenza A QL RT-PCR Negative (Negative); Influenza B QL RT-PCR Negative (Negative); RSV RNA, RT-PCR Negative (Negative); SARS-CoV-2 RNA PCR Negative (Negative)
--- NOTE | 2025-04-07 19:08 | ED_ITS ---
HPI - Altered Mental Status General Chief Complaint: Recheck/Abnormal Lab/Rx Stated Complaint: not acting right Time Seen by Provider: 04/07/25 18:11 History of Present Illness HPI narrative: Patient is a 64-year-old male who presents to the ER with complaints of nausea, dizziness, fatigue, and elevated blood pressure readings. His reports he usually wakes up at 5:00 a.m. but this morning he slept until 9:00 a.m.. Patient reports when he got up this morning he felt dizzy and nauseated. He reports he went back to sleep and has been tired all day. Patient denies any acute pain, shortness of breath, lower extremity swelling, or recent fevers. He endorses a history of high blood pressure, diabetes, and hyperlipidemia. Related Data Home Medications ?Medication ?Instructions ?Recorded ?Confirmed ?Last Taken ?Type multivitamin 1 tablet PO DAILY 01/10/25 1 05/31/24 01/10/25 History omega 7-hco-jlv-fish oil 100 1 cap PO DAILY 01/10/25 1 05/31/24 01/10/25 History mg-160 mg-1,000 mg capsule (Fish Oil) turmeric 400 mg capsule 400 mg PO DAILY 01/10/2501/10/25 History Allergies Allergy/AdvReac Type Severity Reaction Status Date / Time No Known Allergies Allergy Verified 04/07/25 15:32 Review of Systems 2 Review of Systems: All systems reviewed & are unremarkable except as noted in HPI and below PMFSH Past Medical History Medical History Type 2 diabetes mellitus without complications Essential hypertension Hepatic steatosis Mixed hyperlipidemia JESSICA (obstructive sleep apnea) Obesity Blood glucose elevated Family History Family History Mother Diabetes mellitus Social History Social History Social History: Caffeine-daily Smoking packs per day: 0.5 Smoking cigarettes per day: 10.0 Years smoked: 20 Smoking pack-years: 10.00 Smoking status: Former smoker Tobacco type: cigarettes Second hand tobacco smoke exposure: No Smoking end date: 04/12/81 Alcohol intake: current Alcohol use details: rarely Substance use: never Substance use type: does not use Lack of Transportation: No Lack of Food: Never True Current Housing: I Have Housing Concerned About Future Housing: No Difficulty Paying Gas/Electric Bills: No Difficulty Paying for Meds: No Currently Unemployed: YES Education: Don't Know Difficulty w/ Childcare or Family Care: No Living arrangements: with family Occupation/Education: unemployed Gender identity (if verbalized by the patient): Male Sexual Orientation (if Verbalized by the Patient): Straight or Heterosexual Spiritual care concerns: No Exam 2 Narrative: GENERAL: Well appearing, obese, non-toxic, in no acute distress. HEAD: Normocephalic, atraumatic. NECK: Supple. No adenopathy, no masses. RESPIRATORY: Airway patent, respirations nonlabored. Clear to auscultation bilaterally, no rales, rhonchi, wheezing. CARDIOVASCULAR: Regular rate and rhythm without murmurs, rubs, or gallops. Peripheral pulses 2+ and equal bilaterally. No lower extremity edema noted. ABDOMINAL: Soft, nontender, distended. Normoactive BS. MUSCULOSKELETAL: Moves all extremities. Strength/ROM intact without gross deformities. SKIN: Warm, dry, normal color. No rashes. NEURO: A&O X3. Speech clear. Cranial nerves II-XII intact. No ataxic movements. PSYCHIATRIC: Appropriate mood and affect. Normal interaction. Course Vital Signs Vital signs: Vital Signs Temperature 36.4 C 04/07/25 15:45 Pulse Rate 84 04/07/25 15:45 Respiratory Rate 17 04/07/25 15:45 Blood Pressure 154/79 H 04/07/25 15:45 Pulse Oximetry 98 04/07/25 15:45 Oxygen Delivery Room Air 04/07/25 15:45 Temperature 36.4 C 04/07/25 15:45 Pulse Rate 85 04/07/25 19:01 Respiratory Rate 17 04/07/25 19:01 Blood Pressure 139/73 04/07/25 18:46 Pulse Oximetry 96 04/07/25 19:01 Oxygen Delivery Room Air 04/07/25 18:10 [facility] Narrative Medical decision making narrative: Patient is a 64-year-old male who presents to the ER with complaints of nausea, dizziness, fatigue, and elevated blood pressure readings. His reports he usually wakes up at 5:00 a.m. but this morning he slept until 9:00 a.m.. Patient reports when he got up this morning he felt dizzy and nauseated. He reports he went back to sleep and has been tired all day. Patient denies any acute pain, shortness of breath, lower extremity swelling, or recent fevers. He endorses a history of high blood pressure and hyperlipidemia. Labs Ordered: CBC, CMP, UA, lipase, COVID/flu/RSV, troponin, PTT, INR Imaging Ordered: Chest x-ray, head CT scan Medications Ordered: None necessary Results: Patient's CT scan indicates No acute intracranial findings in the noncontrast CT head. Chronic appearing inflammatory changes of right maxillary sinus. Patient's chest x-ray indicates No acute findings. Atherosclerotic aorta. Diagnosis: High blood pressure, nausea, fatigue Patient Education/Shared MDM: Results of lab work and imaging shared with patient. He reports he feels better than he did prior to coming into the ER. Patient reports none of the symptoms he experienced earlier have occurred while he has been in the ER. Patient strongly advised to maintain hydration status upon discharge and follow-up with his PCP as soon as possible for further evaluation. He will not be discharged home with any new prescriptions. Strict return precautions provided. Patient verbalized understanding and is in agreement with plan. Vital signs stable at time of discharge. All questions answered. Of note, patient reports his liver enzymes are ?always elevated and he drink alcohol over the holidays. * patient tolerated ambulation around the emergency department without any return of symptoms. Differential Diagnosis Differential Diagnosis: Vertigo, COVID, flu, RSV, viral infection, headache Lab Data [facility] Lab Attestation statement: I personally reviewed the patient's lab results. 04/07/25 18:22 04/07/25 18:22 Labs: Lab Results 04/07/25 04/07/25 04/07/25 Range/Units 18:22 18:22 18:22 WBC 9.3 (4.5-10.0) K/mm3 RBC 4.73 (4.6-6.20) M/mm3 Hgb 14.5 (14.0-18.0) g/dL Hct 43.2 (42.0-52.0) % MCV 91.3 (80-100) fl MCH 30.7 (26-34) pg MCHC 33.6 (32-36) g/dl RDW 13.2 (11.5-14.5) % Plt Count 280 (150-375) k/mm3 MPV 9.0 (7.4-10.4) fl Immature Gran % (Auto) 0.6 H (0-0.5) % Neut % (Auto) 69.0 (45.5-73.1) % Lymph % (Auto) 21.6 (18.3-44.2) % Mcdonough % (Auto) 7.1 (2.6-8.5) % Eos % (Auto) 1.1 (0-4.4) % Baso % (Auto) 0.6 (0.2-1.2) % Lymph # (Auto) 2.01 (0.9-3.2) K/mm3 Mcdonough # (Auto) 0.7 H (0.1-0.6) K/mm3 Eos # (Auto) 0.1 (0-0.3) K/mm3 Baso # (Auto) 0.1 (0.0-0.1) K/mm3 Abs Immat Gran (auto) 0.06 H (0.00-0.031) K/mm3 Absolute Neuts (auto) 6.4 (1.3-6.7) K/mm3 Absolute Nucleated RBC 0.000 (0.0-0.012) K/mm3 Nucleated RBC % 0.0 (0.0-0.2) % PT 13.9 (11.1-14.7) Seconds INR 1.1 Sodium Cancelled 136 L Potassium Cancelled 4.1 Chloride Cancelled Carbon Dioxide Anion Gap BUN Creatinine Estim Creat Clear Calc Estimated GFR Glucose Calcium Total Bilirubin AST ALT Alkaline Phosphatase Troponin I (0.000-0.034) ng/mL Total Protein Albumin Lipase (23-300) U/L Urine Color (Yellow) Urine Appearance (Clear) Urine pH (5.0-9.0) Ur Specific Marlette (1.001-1.035) Urine Protein (Negative) mg/dL Urine Glucose (UA) (Negative) mg/dL Urine Ketones (Negative) mg/dL Ur Blood (Man) (Negative) Urine Nitrate (Negative) Urine Bilirubin (Negative) Urine Urobilinogen (<2.0) mg/dL Leukocyte Esterase Rfl (Negative) JUAN/UL Influenza A (RT-PCR) (Negative) Influenza B (RT-PCR) (Negative) RSV (RT-PCR) (Negative) SARS-CoV-2 RNA (RT-PCR) (Negative) 04/07/25 04/07/25 04/07/25 Range/Units 18:22 18:22 18:22 WBC (4.5-10.0) K/mm3 RBC (4.6-6.20) M/mm3 Hgb (14.0-18.0) g/dL Hct (42.0-52.0) % MCV (80-100) fl MCH (26-34) pg MCHC (32-36) g/dl RDW (11.5-14.5) % Plt Count (150-375) k/mm3 MPV (7.4-10.4) fl Immature Gran % (Auto) (0-0.5) % Neut % (Auto) (45.5-73.1) % Lymph % (Auto) (18.3-44.2) % Mcdonough % (Auto) (2.6-8.5) % Eos % (Auto) (0-4.4) % Baso % (Auto) (0.2-1.2) % Lymph # (Auto) (0.9-3.2) K/mm3 Mcdonough # (Auto) (0.1-0.6) K/mm3 Eos # (Auto) (0-0.3) K/mm3 Baso # (Auto) (0.0-0.1) K/mm3 Abs Immat Gran (auto) (0.00-0.031) K/mm3 Absolute Neuts (auto) (1.3-6.7) K/mm3 Absolute Nucleated RBC (0.0-0.012) K/mm3 Nucleated RBC % (0.0-0.2) % PT (11.1-14.7) Seconds INR Sodium Potassium Chloride 103 Carbon Dioxide Cancelled 24 Anion Gap Cancelled 9 BUN Cancelled Creatinine Estim Creat Clear Calc Estimated GFR Glucose Calcium Total Bilirubin AST ALT Alkaline Phosphatase Troponin I (0.000-0.034) ng/mL Total Protein Albumin Lipase (23-300) U/L Urine Color (Yellow) Urine Appearance (Clear) Urine pH (5.0-9.0) Ur Specific Marlette (1.001-1.035) Urine Protein (Negative) mg/dL Urine Glucose (UA) (Negative) mg/dL Urine Ketones (Negative) mg/dL Ur Blood (Man) (Negative) Urine Nitrate (Negative) Urine Bilirubin (Negative) Urine Urobilinogen (<2.0) mg/dL Leukocyte Esterase Rfl (Negative) JUAN/UL Influenza A (RT-PCR) (Negative) Influenza B (RT-PCR) (Negative) RSV (RT-PCR) (Negative) SARS-CoV-2 RNA (RT-PCR) (Negative) 04/07/25 04/07/25 04/07/25 Range/Units 18:22 18:22 18:22 WBC (4.5-10.0) K/mm3 RBC (4.6-6.20) M/mm3 Hgb (14.0-18.0) g/dL Hct (42.0-52.0) % MCV (80-100) fl MCH (26-34) pg MCHC (32-36) g/dl RDW (11.5-14.5) % Plt Count (150-375) k/mm3 MPV (7.4-10.4) fl Immature Gran % (Auto) (0-0.5) % Neut % (Auto) (45.5-73.1) % Lymph % (Auto) (18.3-44.2) % Mcdonough % (Auto) (2.6-8.5) % Eos % (Auto) (0-4.4) % Baso % (Auto) (0.2-1.2) % Lymph # (Auto) (0.9-3.2) K/mm3 Mcdonough # (Auto) (0.1-0.6) K/mm3 Eos # (Auto) (0-0.3) K/mm3 Baso # (Auto) (0.0-0.1) K/mm3 Abs Immat Gran (auto) (0.00-0.031) K/mm3 Absolute Neuts (auto) (1.3-6.7) K/mm3 Absolute Nucleated RBC (0.0-0.012) K/mm3 Nucleated RBC % (0.0-0.2) % PT (11.1-14.7) Seconds INR Sodium Potassium Chloride Carbon Dioxide Anion Gap BUN 15 Creatinine Cancelled 0.71 Estim Creat Clear Calc Cancelled 118 Estimated GFR Cancelled Glucose Calcium Total Bilirubin AST ALT Alkaline Phosphatase Troponin I (0.000-0.034) ng/mL Total Protein Albumin Lipase (23-300) U/L Urine Color (Yellow) Urine Appearance (Clear) Urine pH (5.0-9.0) Ur Specific Marlette (1.001-1.035) Urine Protein (Negative) mg/dL Urine Glucose (UA) (Negative) mg/dL Urine Ketones (Negative) mg/dL Ur Blood (Man) (Negative) Urine Nitrate (Negative) Urine Bilirubin (Negative) Urine Urobilinogen (<2.0) mg/dL Leukocyte Esterase Rfl (Negative) JUAN/UL Influenza A (RT-PCR) (Negative) Influenza B (RT-PCR) (Negative) RSV (RT-PCR) (Negative) SARS-CoV-2 RNA (RT-PCR) (Negative) 04/07/25 04/07/25 04/07/25 Range/Units 18:22 18:22 18:22 WBC (4.5-10.0) K/mm3 RBC (4.6-6.20) M/mm3 Hgb (14.0-18.0) g/dL Hct (42.0-52.0) % MCV (80-100) fl MCH (26-34) pg MCHC (32-36) g/dl RDW (11.5-14.5) % Plt Count (150-375) k/mm3 MPV (7.4-10.4) fl Immature Gran % (Auto) (0-0.5) % Neut % (Auto) (45.5-73.1) % Lymph % (Auto) (18.3-44.2) % Mcdonough % (Auto) (2.6-8.5) % Eos % (Auto) (0-4.4) % Baso % (Auto) (0.2-1.2) % Lymph # (Auto) (0.9-3.2) K/mm3 Mcdonough # (Auto) (0.1-0.6) K/mm3 Eos # (Auto) (0-0.3) K/mm3 Baso # (Auto) (0.0-0.1) K/mm3 Abs Immat Gran (auto) (0.00-0.031) K/mm3 Absolute Neuts (auto) (1.3-6.7) K/mm3 Absolute Nucleated RBC (0.0-0.012) K/mm3 Nucleated RBC % (0.0-0.2) % PT (11.1-14.7) Seconds INR Sodium Potassium Chloride Carbon Dioxide Anion Gap BUN Creatinine Estim Creat Clear Calc Estimated GFR > 60 Glucose Cancelled 114 H Calcium Cancelled 9.7 Total Bilirubin Cancelled AST ALT Alkaline Phosphatase Troponin I (0.000-0.034) ng/mL Total Protein Albumin Lipase (23-300) U/L Urine Color (Yellow) Urine Appearance (Clear) Urine pH (5.0-9.0) Ur Specific Marlette (1.001-1.035) Urine Protein (Negative) mg/dL Urine Glucose (UA) (Negative) mg/dL Urine Ketones (Negative) mg/dL Ur Blood (Man) (Negative) Urine Nitrate (Negative) Urine Bilirubin (Negative) Urine Urobilinogen (<2.0) mg/dL Leukocyte Esterase Rfl (Negative) JUAN/UL Influenza A (RT-PCR) (Negative) Influenza B (RT-PCR) (Negative) RSV (RT-PCR) (Negative) SARS-CoV-2 RNA (RT-PCR) (Negative) 04/07/25 04/07/25 04/07/25 Range/Units 18:22 18:22 18:22 WBC (4.5-10.0) K/mm3 RBC (4.6-6.20) M/mm3 Hgb (14.0-18.0) g/dL Hct (42.0-52.0) % MCV (80-100) fl MCH (26-34) pg MCHC (32-36) g/dl RDW (11.5-14.5) % Plt Count (150-375) k/mm3 MPV (7.4-10.4) fl Immature Gran % (Auto) (0-0.5) % Neut % (Auto) (45.5-73.1) % Lymph % (Auto) (18.3-44.2) % Mcdonough % (Auto) (2.6-8.5) % Eos % (Auto) (0-4.4) % Baso % (Auto) (0.2-1.2) % Lymph # (Auto) (0.9-3.2) K/mm3 Mcdonough # (Auto) (0.1-0.6) K/mm3 Eos # (Auto) (0-0.3) K/mm3 Baso # (Auto) (0.0-0.1) K/mm3 Abs Immat Gran (auto) (0.00-0.031) K/mm3 Absolute Neuts (auto) (1.3-6.7) K/mm3 Absolute Nucleated RBC (0.0-0.012) K/mm3 Nucleated RBC % (0.0-0.2) % PT (11.1-14.7) Seconds INR Sodium Potassium Chloride Carbon Dioxide Anion Gap BUN Creatinine Estim Creat Clear Calc Estimated GFR Glucose Calcium Total Bilirubin 0.4 AST Cancelled 61 H ALT Cancelled 74 H Alkaline Phosphatase Cancelled Troponin I (0.000-0.034) ng/mL Total Protein Albumin Lipase (23-300) U/L Urine Color (Yellow) Urine Appearance (Clear) Urine pH (5.0-9.0) Ur Specific Marlette (1.001-1.035) Urine Protein (Negative) mg/dL Urine Glucose (UA) (Negative) mg/dL Urine Ketones (Negative) mg/dL Ur Blood (Man) (Negative) Urine Nitrate (Negative) Urine Bilirubin (Negative) Urine Urobilinogen (<2.0) mg/dL Leukocyte Esterase Rfl (Negative) JUAN/UL Influenza A (RT-PCR) (Negative) Influenza B (RT-PCR) (Negative) RSV (RT-PCR) (Negative) SARS-CoV-2 RNA (RT-PCR) (Negative) 04/07/25 04/07/25 04/07/25 Range/Units 18:22 18:22 18:22 WBC (4.5-10.0) K/mm3 RBC (4.6-6.20) M/mm3 Hgb (14.0-18.0) g/dL Hct (42.0-52.0) % MCV (80-100) fl MCH (26-34) pg MCHC (32-36) g/dl RDW (11.5-14.5) % Plt Count (150-375) k/mm3 MPV (7.4-10.4) fl Immature Gran % (Auto) (0-0.5) % Neut % (Auto) (45.5-73.1) % Lymph % (Auto) (18.3-44.2) % Mcdonough % (Auto) (2.6-8.5) % Eos % (Auto) (0-4.4) % Baso % (Auto) (0.2-1.2) % Lymph # (Auto) (0.9-3.2) K/mm3 Mcdonough # (Auto) (0.1-0.6) K/mm3 Eos # (Auto) (0-0.3) K/mm3 Baso # (Auto) (0.0-0.1) K/mm3 Abs Immat Gran (auto) (0.00-0.031) K/mm3 Absolute Neuts (auto) (1.3-6.7) K/mm3 Absolute Nucleated RBC (0.0-0.012) K/mm3 Nucleated RBC % (0.0-0.2) % PT (11.1-14.7) Seconds INR Sodium Potassium Chloride Carbon Dioxide Anion Gap BUN Creatinine Estim Creat Clear Calc Estimated GFR Glucose Calcium Total Bilirubin AST ALT Alkaline Phosphatase 80 Troponin I < 0.012 (0.000-0.034) ng/mL Total Protein Cancelled 8.2 Albumin Cancelled 4.6 Lipase 63 (23-300) U/L Urine Color (Yellow) Urine Appearance (Clear) Urine pH (5.0-9.0) Ur Specific Marlette (1.001-1.035) Urine Protein (Negative) mg/dL Urine Glucose (UA) (Negative) mg/dL Urine Ketones (Negative) mg/dL Ur Blood (Man) (Negative) Urine Nitrate (Negative) Urine Bilirubin (Negative) Urine Urobilinogen (<2.0) mg/dL Leukocyte Esterase Rfl (Negative) JUAN/UL Influenza A (RT-PCR) Negative (Negative) Influenza B (RT-PCR) Negative (Negative) RSV (RT-PCR) Negative (Negative) SARS-CoV-2 RNA (RT-PCR) Negative (Negative) 04/07/25 Range/Units 20:03 WBC (4.5-10.0) K/mm3 RBC (4.6-6.20) M/mm3 Hgb (14.0-18.0) g/dL Hct (42.0-52.0) % MCV (80-100) fl MCH (26-34) pg MCHC (32-36) g/dl RDW (11.5-14.5) % Plt Count (150-375) k/mm3 MPV (7.4-10.4) fl Immature Gran % (Auto) (0-0.5) % Neut % (Auto) (45.5-73.1) % Lymph % (Auto) (18.3-44.2) % Mcdonough % (Auto) (2.6-8.5) % Eos % (Auto) (0-4.4) % Baso % (Auto) (0.2-1.2) % Lymph # (Auto) (0.9-3.2) K/mm3 Mcdonough # (Auto) (0.1-0.6) K/mm3 Eos # (Auto) (0-0.3) K/mm3 Baso # (Auto) (0.0-0.1) K/mm3 Abs Immat Gran (auto) (0.00-0.031) K/mm3 Absolute Neuts (auto) (1.3-6.7) K/mm3 Absolute Nucleated RBC (0.0-0.012) K/mm3 Nucleated RBC % (0.0-0.2) % PT (11.1-14.7) Seconds INR Sodium Potassium Chloride Carbon Dioxide Anion Gap BUN Creatinine Estim Creat Clear Calc Estimated GFR Glucose Calcium Total Bilirubin AST ALT Alkaline Phosphatase Troponin I (0.000-0.034) ng/mL Total Protein Albumin Lipase (23-300) U/L Urine Color Yellow (Yellow) Urine Appearance Clear (Clear) Urine pH 6.0 (5.0-9.0) Ur Specific Marlette 1.015 (1.001-1.035) Urine Protein Negative (Negative) mg/dL Urine Glucose (UA) Negative (Negative) mg/dL Urine Ketones Negative (Negative) mg/dL Ur Blood (Man) Negative (Negative) Urine Nitrate Negative (Negative) Urine Bilirubin Negative (Negative) Urine Urobilinogen 0.2 (<2.0) mg/dL Leukocyte Esterase Rfl Negative (Negative) JUAN/UL Influenza A (RT-PCR) (Negative) Influenza B (RT-PCR) (Negative) RSV (RT-PCR) (Negative) SARS-CoV-2 RNA (RT-PCR) (Negative) Imaging Data Attestation: I personally reviewed and interpreted this imaging study as follows: Radiologist's impression: ITS Impressions Chest X-Ray 04/07/25 19:00 IMPRESSION: 1. No acute findings. Atherosclerotic aorta. Head CT 04/07/25 19:37 IMPRESSION: 1. No acute intracranial findings in the noncontrast CT head. Chronic appearing inflammatory changes of right maxillary sinus. Discharge Plan Discharge Clinical Impression: Essential hypertension, Fatigue, Nausea Patient Disposition: Home Condition: Stable Instructions: Antibiotic Form, Hypertension (ED), Fatigue (ED) Additional Instructions: Please return to the ER with any worsening symptoms. Follow-up with primary care provider as soon as possible for further evaluation. Take all medications as prescribed, including regularly scheduled medications. You may take Tylenol and/or ibuprofen for pain control. Please remember to drink lots of water. Patient Language: Namibian Prescriptions: No Action turmeric 400 mg capsule 400 mg PO DAILY multivitamin [Daily Multi-Vitamin] 1 tablet PO DAILY Fish Oil 100-160-1,000 mg capsule 1 cap PO DAILY hydrochlorothiazide 25 mg tablet 25 mg PO DAILY Qty: 90 2RF losartan 100 mg tablet 100 mg PO DAILY Qty: 90 2RF amlodipine 10 mg tablet 10 mg PO DAILY Qty: 90 2RF atorvastatin 10 mg tablet 10 mg PO DAILY Qty: 90 2RF Follow-up/Referrals: Abhishek Smith MD [Primary Care Provider, Family Practice] Stand Alone Forms: Work/School Release IP Time of Disposition: 21:04
[2025-04-07 20:13] LABS: Add Urine Microscopic? NO; Appearance Urine Clear (Clear); Glucose Urine UA Negative (Negative); Leukocyte Esterase Ur Negative LEU/UL (Negative); Nitrate Urine Negative (Negative); Specific Grav Ur 1.015 (1.001-1.035)
== END 2025-04-07 21:45 | disposition home or self-care (01) ==
PROVIDERS: Emergency Medicine; Emergency Provider Registered Nurse; PCP Family Medicine
DX: I10 Essential (primary) hypertension (principal); R11.0 Nausea; R53.83 Other fatigue; Z20.822 Contact with and (suspected) exposure to COVID-19; E11.9 Type 2 diabetes mellitus without complications; E78.2 Mixed hyperlipidemia; E66.9 Obesity, unspecified; Z68.35 Body mass index [BMI] 35.0-35.9, adult; G47.33 Obstructive sleep apnea (adult) (pediatric); Z87.891 Personal history of nicotine dependence; Z79.899 Other long term (current) drug therapy
CPT/HCPCS: 36415; 70450; 71046; 80053; 81003; 83690; 84484; 85025; 85610; 87637; 93005; 99284; 99285